=== PATIENT | female | born 1950 | race Caucasian/White ===

== ENCOUNTER → 2016-05-02 | Outpatient (CLI) | payer OTHER ==
--- NOTE | ~2016-05-02 | CR63 ---
[facility] A Service of [facility] & [facility] / [facility] RADIOLOGY TEXT RESULTS PATIENT: MARYANN LONGORIA LOCATION: [facility] : 54 UNIT #: [id number] AGE: [address]: TAVON Piper APRN SEX: F ORDER DR: [id number] [facility] [address] [facility]. [place], [place] [address] [id number] O MR#: [id number] Acc #: [id number] NAME: MARYANN LONGORIA : 1950 SEX: F STUDY DATE/TIME: 05/02/2016 12:00 UNIT: [facility] ROOM: STUDY DESCRIPTION: CR Chest 2 View Attending Physician: Tavon Renee Aprn Referring Physician: Tavon Renee Aprn Ordering Physician: Tavon Renee Aprn Primary Care Physician: Tavon Renee Aprn MEDICAL IMAGING REPORT This report is preliminary unless electronic signature is present EXAM Two-view chest. INDICATION Dyspnea. Shortness of air for 1 month. FINDINGS PA and lateral views of the chest without comparison. Heart and mediastinal contours are normal. The lungs are clear. No pleural effusion. IMPRESSION Negative chest radiograph. Dictated by... Justin Barbosa M.D. THIS IS AN ELECTRONICALLY VERIFIED REPORT Justin Barbosa M.D. at 05/03/2016 9:22 AM AMADOR/reese TD: 05/02/2016 16:37 JOB #: [id number] MEDICAL IMAGING REPORT COPY
--- NOTE | ~2016-05-02 | PFT ---
[id number] [facility]. [place], [place] [address] [id number] O MR#: [id number] NAME: MARYANN LONGORIA ROOM: SEX: F STUDY DATE/TIME: 05/07/2016 : 1950 AGE: 65 STUDY DESCRIPTION: Attending Physician: Elmira Renee Aprn Referring Physician: Elmira Renee Aprn Primary Care Physician: Elmira Renee Aprn PULMONARY DIAGNOSTIC REPORT EXAM Pulmonary function test FINDINGS Spirometry is normal. There is a significant response to bronchodilators at 12%, yielding an FEV1 of 3.32 L, 112% of predicted. Flow-volume loop is fairly unremarkable. Lung volumes suggest hyperinflation. Diffusion capacity is normal at 82%. PFTs are fairly unremarkable but could represent underlying asthma and clinical correlation is needed. Dictated by... Jaime Martínez M.D. WOL/karissa TD: 05/07/2016 22:59 JOB #: [id number] PULMONARY DIAGNOSTIC REPORT Page 1 of 1
== END | disposition home or self-care (01) ==
LOC: CRC 10:42
DX: R06.00 Dyspnea, unspecified (principal)
CPT/HCPCS: 71020; 94060; 94726; 94729

== ENCOUNTER → 2016-09-25 | Outpatient (CLI) | payer OTHER | END | disposition home or self-care (01) | LOC: CECH 13:21 | DX: R01.0 Benign and innocent cardiac murmurs (principal); I36.1 Nonrheumatic tricuspid (valve) insufficiency | CPT/HCPCS: 93306 ==